=== PATIENT | male | born 1970 | race American Indian/Alaskan Native ===

== ENCOUNTER 2019-12-07 17:12 | Inpatient (IN) | payer OTHER ==
--- NOTE | 2019-12-07 17:53 | Cat Scan Report ---
NONENHANCED CT SCAN OF THE BRAIN: INDICATION: neuro deficits <6hrs or sx present upon awakening. TECHNIQUE: Routine CT head without contrast. Sagittal and coronal reformatted images were obtained. A ll CT scans at this location are performed using CT dose reduction for ALARA by means of automated ex posure control. COMPARISON: None. FINDINGS: BRAIN / INTRACRANIAL CONTENTS: Hemorrhage:No intracranial hemorrhage; no subarachnoid hemorrhage Stroke mimics: No subdural or epidural hematoma or space taking lesion Acute/subacute territorial infarction: Calles-white matter interface: No blurring; normal Insular cortex: Normal Basal ganglia: Normal Wedge shaped parenchymal low density area: Not present Cortical sulci: Not effaced Lacunar infarctions: Lacunae seen in both basal ganglia but these appear to be chronic (attenuation s imilar to that of CSF) Vasculopathy: Dense middle cerebral artery sign: Not present Internal carotid artery terminus: Normal Basilar artery:Normal Middle cerebral artery branches in the sylvian fissure (Dot sign): Normal Calcified embolus: Not present ASPECT score: 10 Chronic lesions: Encephalomalacia is seen in the right superior frontal gyrus. Small chronic lacunae are seen in the basal ganglia bilaterally. Craniocervical junction:No significant abnormality Orbits:No significant abnormality Paranasal sinuses/mastoids:No significant abnormality Additional findings: None IMPRESSION: No intracerebral hemorrhage No stroke mimics No acute/subacute infarction: Given the history of right arm and leg weakness, left precentral gyrus and left corticospinal tract appear normal. This exam was performed as part of a code stroke protocol. The exam was completed at [facility] on 12/07/2019 4:39 PM. The exam was reviewed at 4:43 PM Central daylight saving time and ER physician was notified at 4:47 PM. Signer Name: Nubia Augustine MD Signed: 12/07/2019 5:48 PM Workstation Name: [id number]
[2019-12-07 18:02] LABS: Basophils % (Auto) 0.8 % (0.0-1.8); Eosinophils % (Auto) 1.1 % (0.0-4.3); Hematocrit 39.6 % (35.5-45.6); Hemoglobin 13.4 gm/dl (11.8-15.2); Lymphocytes # (Auto) 1.6 K/mm3 (1.2-5.4); Lymphocytes % (Auto) 38.8 % (13.4-35.0); Mean Corpuscular HGB Conc 34 % (32-34); Mean Corpuscular Volume 91 fl (84-94); Monocytes # (Auto) 0.4 K/mm3 (0.0-0.8); Platelet Count 151 K/mm3 (140-440); Red Blood Count 4.34 M/mm3 (3.65-5.03)
--- NOTE | 2019-12-07 18:11 | Consultation ---
History of Present Illness Consult date: 12/07/19 Medications and Allergies Allergies Allergy/AdvReac Type Severity Reaction Status Date / Time No Known Allergies Allergy Unverified 12/07/19 17:22 Physical Examination - Vital Signs Vital Signs: Vital Signs Temp Pulse Resp BP Pulse Ox 98.4 F 97 H 18 204/117 99 12/07/19 17:22 12/07/19 17:22 12/07/19 17:22 12/07/19 17:22 12/07/19 17:22 Results - Laboratory Findings CBC and BMP: 12/07/19 17:50 Abnormal Lab Findings: Abnormal Labs 12/07/19 12/07/19 17:36 17:50 WBC 4.2 L RDW 13.0 L Lymph % (Auto) 38.8 H [place] % (Auto) 9.0 H POC Glucose 115 H Assessment and Plan [facility] TeleNeurology Consult Services Date of Service: 12/07/2019 17:26:35 Impression: stroke Comments/Sign-Out: 49 year old male patient right limb numbness since last evening. NIHSS 0. BPs were 200+/100 No indication for IVtPA, Ok for routine stroke admission, no indication for IVtPA or stat interventional assessment. BPs less than 180/90 gentle IV hydration NS IVF 60mls/h Asa, statin Metrics: Last Known Well: Unknown [employer] Notification Time: 12/07/2019 17:26:35 Arrival Time: 12/07/2019 17:26:00 Stamp Time: 12/07/2019 17:26:35 Time First Login Attempt: 12/07/2019 17:27:39 Video Start Time: 12/07/2019 17:27:39 Symptoms: right leg numbness progressing to arm since last evening NIHSS Start Assessment Time: 12/07/2019 17:36:58 Patient is not a candidate for tPA. Video End Time: 12/07/2019 17:50:17 CT head showed no acute hemorrhage or acute core infarct. Clinical Presentation is not Suggestive of Large Vessel Occlusive Disease Radiologist was not called back for review of advanced imaging because CTa not obtained ED Physician notified of diagnostic impression and management plan on 12/07/2019 18:09:19 Sign Out: Discussed with Emergency Department Provider History of Present Illness: Patient is a 49 year old Male. 49 year old male patient who noted right leg numbness yesterday, at some point progressing to the right arm . Symptoms were still present today so he was brought here after going to urgent care. He denies limb weakness, denies vision changes. NIHSS 0 Examination: BP(207/117), 1A: Level of Consciousness - Alert; keenly responsive + 0 1B: Ask Month and Age - Both Questions Right + 0 1C: Blink Eyes & Squeeze Hands - Performs Both Tasks + 0 2: Test Horizontal Extraocular Movements - Normal + 0 3: Test Visual Batres - No Visual Loss + 0 4: Test Facial Palsy (Use Grimace if Obtunded) - Normal symmetry + 0 5A: Test Left Arm Motor Drift - No Drift for 10 Seconds + 0 5B: Test Right Arm Motor Drift - No Drift for 10 Seconds + 0 6A: Test Left Leg Motor Drift - No Drift for 5 Seconds + 0 6B: Test Right Leg Motor Drift - No Drift for 5 Seconds + 0 7: Test Limb Ataxia (FNF/Heel-Gracia) - No Ataxia + 0 8: Test Sensation - Normal; No sensory loss + 0 9: Test Language/Aphasia - Normal; No aphasia + 0 10: Test Dysarthria - Normal + 0 11: Test Extinction/Inattention - No abnormality + 0 NIHSS Score: 0 Patient/Family was informed the Neurology Consult would happen via TeleHealth consult by way of interactive audio and video telecommunications and consented to receiving care in this manner. Due to the immediate potential for life-threatening deterioration due to underlying acute neurologic illness, I spent 35 minutes providing critical care. This time includes time for face to face visit via telemedicine, review of medical records, imaging studies and discussion of findings with providers, the patient and/or family. Dr Magdy Adams [facility] Case [id number]
[2019-12-07 18:13] LABS: INR 1.07 (0.87-1.13); Partial Thromboplastin Time 25.9 Sec. (24.2-36.6)
[2019-12-07 18:14] LABS: Thrombin Time 17.1 Sec. (15.1-19.6)
[2019-12-07 18:16] LABS: BUN/Creatinine Ratio 10; Blood Urea Nitrogen 12 mg/dL (9-20); Calcium 9.2 mg/dL (8.4-10.2); Hemolysis Index 7
--- NOTE | 2019-12-07 18:50 | Emergency Department Report ---
ED Neuro Deficit HPI - General Chief Complaint: Neuro Symptoms/Deficit Stated Complaint: RT SIDE NUMB Time Seen by Provider: 12/07/19 17:39 Source: patient Mode of arrival: Ambulatory Limitations: No Limitations - History of Present Illness Initial Comments: This is a 49-year-old male with history of hypertension who presents with right face right arm right leg numbness since 3:00 this morning. Numbness began in the right foot then progressed to the right leg right arm and face throughout the day. Numbness is still present. He currently denies headache. He denies weakness. He denies blurry vision. -: Sudden, This morning Location: right face, right arm, right leg History of same: No Place: home Severity: mild Improves With: none Worsens With: none On Anticoagulants: No Context: sudden onset Associated Symptoms: denies other symptoms - Related Data Allergies/Adverse Reactions: Allergies Allergy/AdvReac Type Severity Reaction Status Date / Time No Known Allergies Allergy Unverified 12/07/19 17:22 ED Review of Systems ROS: Stated complaint: RT SIDE NUMB Other details as noted in HPI Comment: All other systems reviewed and negative Constitutional: denies: fever, malaise Respiratory: denies: cough, shortness of breath Cardiovascular: denies: chest pain Gastrointestinal: denies: nausea, vomiting Neurological: numbness. denies: headache, paresthesias, confusion, abnormal gait, vertigo ED Past Medical Hx - Past Medical History Previous Medical History?: Yes Hx Hypertension: Yes - Surgical History Past Surgical History?: No - Family History Family history: hypertension - Social History Smoking Status: Never Smoker Substance Use Type: Alcohol ED Neuro Physical Exam - General Limitations: No Limitations General appearance: alert, in no apparent distress Suspected Stroke: Yes - Head Head exam: Present: atraumatic, normocephalic - Eye Eye exam: Present: normal appearance - ENT ENT exam: Present: mucous membranes moist - Neck Neck exam: Present: normal inspection, full ROM - Respiratory Respiratory exam: Present: normal lung sounds bilaterally. Absent: respiratory distress, wheezes, rales, rhonchi - Cardiovascular Cardiovascular Exam: Present: regular rate, normal rhythm, normal heart sounds. Absent: systolic murmur, diastolic murmur, rubs, gallop - GI/Abdominal GI/Abdominal exam: Present: soft, normal bowel sounds. Absent: distended, tenderness, guarding, rebound - Rectal Rectal exam: Present: deferred - Extremities Exam Extremities exam: Present: normal inspection - Back Exam Back exam: Present: normal inspection - Neurological Exam Neurological exam: Present: alert, oriented X3 - NIHSS Assessment Interval: Baseline 1a. Level of Consciousness: alert/keenly responsive 1b. LOC Questions: answers both correctly 1c. LOC Commands: performs tasks correctly 2. Best Gaze: normal 3. Visual: no visual loss 4. Facial Palsy: normal symmetrical movement 5b. Motor Arm Right: no drift 5a. Motor Arm Left: no drift 6a. Motor Leg Left: no drift 6b. Motor Leg Right: no drift 7. Limb Ataxia: absent 8. Sensory: mild/moderate sensory loss 9. Best Language: no aphasia 10. Dysarthria: normal 11. Extinction/Inattention: no abnormality Total Score: 1 Stroke Severity: Minor Stroke - Psychiatric Psychiatric exam: Present: normal affect, normal mood - Skin Skin exam: Present: warm, dry, intact, normal color. Absent: rash ED Course Vital Signs 12/07/19 17:22 Temperature 98.4 F Pulse Rate 97 H Respiratory 18 Rate Blood Pressure 204/117 [Right] O2 Sat by Pulse 99 Oximetry - Lab Data Result diagrams: 12/07/19 17:50 12/07/19 17:50 Lab Results 12/07/19 12/07/19 12/07/19 Range/Units 17:36 17:50 17:50 WBC 4.2 L (4.5-11.0) K/mm3 RBC 4.34 (3.65-5.03) M/mm3 Hgb 13.4 (11.8-15.2) gm/dl Hct 39.6 (35.5-45.6) % MCV 91 (84-94) fl MCH 31 (28-32) pg MCHC 34 (32-34) % RDW 13.0 L (13.2-15.2) % Plt Count 151 (140-440) K/mm3 Lymph % (Auto) 38.8 H (13.4-35.0) % [place] % (Auto) 9.0 H (0.0-7.3) % Eos % (Auto) 1.1 (0.0-4.3) % Baso % (Auto) 0.8 (0.0-1.8) % Lymph # 1.6 (1.2-5.4) K/mm3 [place] # 0.4 (0.0-0.8) K/mm3 Eos # 0.0 (0.0-0.4) K/mm3 Baso # 0.0 (0.0-0.1) K/mm3 Seg Neutrophils % 50.3 (40.0-70.0) % Seg Neutrophils # 2.1 (1.8-7.7) K/mm3 PT 14.0 (12.2-14.9) Sec. INR 1.07 (0.87-1.13) APTT 25.9 (24.2-36.6) Sec. Thrombin Time 17.1 (15.1-19.6) Sec. Sodium (137-145) mmol/L Potassium (3.6-5.0) mmol/L Chloride (98-107) mmol/L Carbon Dioxide (22-30) mmol/L Anion Gap mmol/L BUN (9-20) mg/dL Creatinine (0.8-1.3) mg/dL Estimated GFR ml/min BUN/Creatinine Ratio % Glucose (75-100) mg/dL POC Glucose 115 H (70-105) Calcium (8.4-10.2) mg/dL Troponin T (0.00-0.029) ng/mL 12/07/19 12/07/19 Range/Units 17:50 18:39 WBC (4.5-11.0) K/mm3 RBC (3.65-5.03) M/mm3 Hgb (11.8-15.2) gm/dl Hct (35.5-45.6) % MCV (84-94) fl MCH (28-32) pg MCHC (32-34) % RDW (13.2-15.2) % Plt Count (140-440) K/mm3 Lymph % (Auto) (13.4-35.0) % [place] % (Auto) (0.0-7.3) % Eos % (Auto) (0.0-4.3) % Baso % (Auto) (0.0-1.8) % Lymph # (1.2-5.4) K/mm3 [place] # (0.0-0.8) K/mm3 Eos # (0.0-0.4) K/mm3 Baso # (0.0-0.1) K/mm3 Seg Neutrophils % (40.0-70.0) % Seg Neutrophils # (1.8-7.7) K/mm3 PT (12.2-14.9) Sec. INR (0.87-1.13) APTT (24.2-36.6) Sec. Thrombin Time (15.1-19.6) Sec. Sodium 143 (137-145) mmol/L Potassium 3.7 (3.6-5.0) mmol/L Chloride 105.8 (98-107) mmol/L Carbon Dioxide 26 (22-30) mmol/L Anion Gap 15 mmol/L BUN 12 (9-20) mg/dL Creatinine 1.2 (0.8-1.3) mg/dL Estimated GFR > 60 ml/min BUN/Creatinine Ratio 10 % Glucose 139 H (75-100) mg/dL POC Glucose 122 H (70-105) Calcium 9.2 (8.4-10.2) mg/dL Troponin T < 0.010 (0.00-0.029) ng/mL 12/07/19 19:00 EKG obtained 1852 Normal sinus rhythm rate 80 bpm normal axis normal intervals no ST elevation positive LVH nonischemic T wave pattern - Radiology Data Radiology results: report reviewed NONENHANCED CT SCAN OF THE BRAIN: INDICATION: neuro deficits <6hrs or sx present upon awakening. TECHNIQUE: Routine CT head without contrast. Sagittal and coronal reformatted images were obtained. All CT scans at this location are performed using CT dose reduction for ALARA by means of automated exposure control. COMPARISON: None. FINDINGS: BRAIN / INTRACRANIAL CONTENTS: Hemorrhage:No intracranial hemorrhage; no subarachnoid hemorrhage Stroke mimics: No subdural or epidural hematoma or space taking lesion Acute/subacute territorial infarction: Calles-white matter interface: No blurring; normal Insular cortex: Normal Basal ganglia: Normal Wedge shaped parenchymal low density area: Not present Cortical sulci: Not effaced Lacunar infarctions: Lacunae seen in both basal ganglia but these appear to be chronic (attenuation similar to that of CSF) Vasculopathy: Dense middle cerebral artery sign: Not present Internal carotid artery terminus: Normal Basilar artery:Normal Middle cerebral artery branches in the sylvian fissure (Dot sign): Normal Calcified embolus: Not present ASPECT score: 10 Chronic lesions: Encephalomalacia is seen in the right superior frontal gyrus. Small chronic lacunae are seen in the basal ganglia bilaterally. Craniocervical junction:No significant abnormality Orbits:No significant abnormality Paranasal sinuses/mastoids:No significant abnormality Additional findings: None IMPRESSION: No intracerebral hemorrhage No stroke mimics No acute/subacute infarction: Given the history of right arm and leg weakness, left precentral gyrus and left corticospinal tract appear normal. - Medical Decision Making Acute CVA: Patient has persistent right-sided numbness to both soft touch and pinprick. NIH stroke score 1. Due to mild symptoms, thrombolytics not indicated. Also due to time of onset, thrombolytics are not indicated. Patient given aspirin in the emergency department. Tele-neurologist recommended admission for stroke evaluation. I have addressed elevated blood pressure with IV labetalol. \Patient is admitted to the hospital service Work-up notable for encephalomalacia right superior frontal gyrus, lacunar infarcts chronic in both basal ganglia - Thrombolytic Inclusion/Exclusion Thrombolytic Exclusion Criteria: Symptom Onset > 3 Hours Thrombolytic Contraindications: Rapidily Improving s/s Critical Care Time: Yes Critical care time in (mins) excluding proc time.: 40 Critical care attestation.: If time is entered above; I have spent that time in minutes in the direct care of this critically ill patient, excluding procedure time. 40 minutes of critical care time excluding procedures were used in the care of the patient. I reviewed electronic record. I discussed treatment plan with the nursing team members at the bedside. I came immediately to the bedside upon patient's return to the treatment room.. I Patient required multiple interventions and reassessments. I spoke with multiple consultants including tele-neurologist, radiologist and hospitalist regarding patient's care. Upon patient's arrival, code stroke initiated. ED Disposition Clinical Impression: Acute CVA (cerebrovascular accident), Hypertensive urgency Disposition: DC-09 OP ADMIT IP TO THIS HOSP Is pt being admited?: Yes Does the pt Need Aspirin: No Condition: Stable Referrals: PRIMARY CARE, [Primary Care Provider] - 3-5 Days
[2019-12-07] MEDS ORDERED: ASPIRIN 81 MG TAB CHEW PO ONE (18:52)
[2019-12-08] MEDS ORDERED: oxyCODONE /ACETAMINOPHEN 5-325MG TAB PO PRN (00:15)
[2019-12-08] MEDS ORDERED: ACETAMINOPHEN 325 MG TAB PO PRN (00:15)
[2019-12-08] MEDS ORDERED: HYDROmorphone 1 MG/1 ML INJ IV PRN (00:15)
[2019-12-08] MEDS ORDERED: ONDANSETRON 4 MG/2 ML INJ IV PRN (00:15)
--- NOTE | 2019-12-08 00:19 | History and Physical Report ---
History of Present Illness Date of examination: 12/07/19 Date of admission: 12/07/19 19:47 Chief complaint: Right-sided numbness since a.m. History of present illness: 49-year-old male with history of hypertension comes in for right-sided numbness since 3 AM this morning. No seizures. Right right-sided numbness extended from the foot to the left and right lower extremity and then to left side of the body and face. Patient has problems when he tries to close his mouth - Past Medical History Previous Medical History?: Yes Hx Hypertension: Yes - Surgical History Past Surgical History?: No - Family History Family history: hypertension - Social History Smoking Status: Never Smoker Substance Use Type: Alcohol Review of systems Constitutional no weight loss or weight gain no fever or chills HEENT no sore throat no post nasal drip no diplopia Neck no neck stiffness no lymph gland enlargement Chest and lungs no shortness of breath cough or wheezing CVS no chest pain no diaphoresis no palpitations GI no nausea no vomiting no diarrhea Genitourinary system no dysuria no flank pain Musculoskeletal system no muscle pains no joint pains [employer] right-sided numbness from the face to the right side of the chest to the right legs right lower extremity. Skin no rash no itching Psychiatric no depression no homicidal or suicidal tendencies Hematologic no lymphedema or bruising Endocrine no polydipsia no polyuria no cold intolerance no heat intolerance Medications and Allergies Allergies Allergy/AdvReac Type Severity Reaction Status Date / Time No Known Allergies Allergy Verified 12/08/19 00:20 Home Medications Medication Instructions Recorded Confirmed Last Taken Type No Known Home Medications [No 12/07/19 12/07/19 Unknown History Reported Home Medications] Exam - Constitutional Vitals: Temp Pulse Resp BP Pulse Ox 98.4 F 65 12 168/107 98 12/07/19 17:22 12/07/19 23:00 12/07/19 23:00 12/07/19 23:00 12/07/19 23:00 General appearance: Present: no acute distress, well-nourished - EENT Eyes: Present: PERRL ENT: hearing intact, clear oral mucosa - Neck Neck: Present: supple, normal ROM - Respiratory Respiratory effort: normal Respiratory: bilateral: CTA - Cardiovascular Heart rate: 78 Rhythm: regular Heart Sounds: Present: S1 & S2. Absent: rub, click - Extremities Extremities: no ischemia, pulses intact, pulses symmetrical, No edema Peripheral Pulses: within normal limits - Abdominal General gastrointestinal: Present: soft, non-tender, non-distended, normal bowel sounds Male genitourinary: Present: normal - Integumentary Integumentary: Present: clear, warm, dry - Musculoskeletal Musculoskeletal: gait normal, strength equal bilaterally - Psychiatric Psychiatric: appropriate mood/affect, intact judgment & insight - Neurologic Neurologic: CNII-XII intact, moves all extremities - Allied Health Allied health notes reviewed: nursing, case management HEART Score - HEART Score Troponin: Troponin T < 0.010 ng/mL (0.00-0.029) 12/07/19 17:50 Results - Labs CBC & Chem 7: 12/09/19 04:47 12/09/19 04:47 Labs: Laboratory Last Values WBC 4.2 K/mm3 (4.5-11.0) L 12/07/19 17:50 RBC 4.34 M/mm3 (3.65-5.03) 12/07/19 17:50 Hgb 13.4 gm/dl (11.8-15.2) 12/07/19 17:50 Hct 39.6 % (35.5-45.6) 12/07/19 17:50 MCV 91 fl (84-94) 12/07/19 17:50 MCH 31 pg (28-32) 12/07/19 17:50 MCHC 34 % (32-34) 12/07/19 17:50 RDW 13.0 % (13.2-15.2) L 12/07/19 17:50 Plt Count 151 K/mm3 (140-440) 12/07/19 17:50 Lymph % (Auto) 38.8 % (13.4-35.0) H 12/07/19 17:50 [place] % (Auto) 9.0 % (0.0-7.3) H 12/07/19 17:50 Eos % (Auto) 1.1 % (0.0-4.3) 12/07/19 17:50 Baso % (Auto) 0.8 % (0.0-1.8) 12/07/19 17:50 Lymph # 1.6 K/mm3 (1.2-5.4) 12/07/19 17:50 [place] # 0.4 K/mm3 (0.0-0.8) 12/07/19 17:50 Eos # 0.0 K/mm3 (0.0-0.4) 12/07/19 17:50 Baso # 0.0 K/mm3 (0.0-0.1) 12/07/19 17:50 Seg Neutrophils % 50.3 % (40.0-70.0) 12/07/19 17:50 Seg Neutrophils # 2.1 K/mm3 (1.8-7.7) 12/07/19 17:50 PT 14.0 Sec. (12.2-14.9) 12/07/19 17:50 INR 1.07 (0.87-1.13) 12/07/19 17:50 APTT 25.9 Sec. (24.2-36.6) 12/07/19 17:50 Thrombin Time 17.1 Sec. (15.1-19.6) 12/07/19 17:50 Sodium 143 mmol/L (137-145) 12/07/19 17:50 Potassium 3.7 mmol/L (3.6-5.0) 12/07/19 17:50 Chloride 105.8 mmol/L (98-107) 12/07/19 17:50 Carbon Dioxide 26 mmol/L (22-30) 12/07/19 17:50 Anion Gap 15 mmol/L 12/07/19 17:50 BUN 12 mg/dL (9-20) 12/07/19 17:50 Creatinine 1.2 mg/dL (0.8-1.3) 12/07/19 17:50 Estimated GFR > 60 ml/min 12/07/19 17:50 BUN/Creatinine Ratio 10 % 12/07/19 17:50 Glucose 139 mg/dL (75-100) H 12/07/19 17:50 POC Glucose 122 (70-105) H 12/07/19 18:39 Calcium 9.2 mg/dL (8.4-10.2) 12/07/19 17:50 Troponin T < 0.010 ng/mL (0.00-0.029) 12/07/19 17:50 Short CBC 12/09/19 Range/Units 04:47 WBC 3.7 L (4.5-11.0) K/mm3 Hgb 14.2 (11.8-15.2) gm/dl Hct 42.1 (35.5-45.6) % Plt Count 159 (140-440) K/mm3 BMP 12/09/19 04:47 Sodium 138 Potassium 3.5 L Chloride 101.7 Carbon Dioxide 27 BUN 15 Creatinine 1.1 Glucose 105 H Calcium 9.2 Liver Function 12/09/19 Range/Units 04:47 Total Bilirubin 0.50 (0.1-1.2) mg/dL AST 19 (5-40) units/L ALT 23 (7-56) units/L Alkaline Phosphatase 46 (35-129) units/L Albumin 4.0 (3.9-5) g/dL - Imaging and Cardiology EKG: report reviewed Chest x-ray: report reviewed (If people like you do not go for putting the end of) Imaging and Cardiology: MRI w IMPRESSION: 1. There is a 1 cm acute infarct oriented along the posterior limb of the left internal capsule as detailed above. 2. There is otherwise moderate microvascular angiopathy with old lacunar infarcts as described [place]/IV: Voiding Method Urinal IV Catheter Type [Right INT / Saline Lock Antecubital] Assessment and Plan Advance Directives: Yes - Patient Problems (1) Acute CVA (cerebrovascular accident) Current Visit: Yes Status: Acute Plan to address problem: Acute infarct continue left internal capsule area affecting the sensory region patient has sensory stroke Aspirin and Plavix (2) Hypertensive urgency Current Visit: Yes Status: Acute Plan to address problem: Patient initiated on antihypertensives and IV hydralazine PRN (3) DVT prophylaxis Current Visit: Yes Status: Acute Plan to address problem: On Lovenox and GI prophylaxis
[2019-12-08] MEDS ORDERED: hydrALAZINE 20 MG/1 ML INJ IV ONE (00:37)
[2019-12-08] MEDS: ASPIRIN 325 MG TAB PO SCH (11:00)
[2019-12-08] MEDS: FAMOTIDINE 20 MG TAB PO SCH ×2 (11:00→21:26)
--- NOTE | 2019-12-08 11:08 | Magnetic Resonance Report ---
MR brain wo con INDICATION / CLINICAL INFORMATION: 49 years Male; MAIN. TECHNIQUE: Multiplanar, multisequence MR images of the brain were obtained. COMPARISON: The study is compared to the previous CT of 12/07/2019. FINDINGS: BRAIN / INTRACRANIAL CONTENTS: There is an acute infarct oriented along the fissure limb of the left internal capsule measuring 1.0 cm longitudinally. On the FLAIR sequence, there are otherwise scattere d hyperintense foci involving cerebral white matter most consistent with microvascular angiopathy. Th ere are old small lacunar infarcts involving the basal ganglia bilaterally. Chronic ischemic changes also extend to the frontal cortical region. The diffusion imaging reveals no further evidence of acut e infarction. On the susceptibility weighted imaging, there are a few foci of marked decreased signal intensity inc luding the basal ganglia most consistent with chronic microhemorrhages. There is mild cerebral atroph y. The ventricular system is correspondingly appropriate in size and configuration. No extra-axial fl uid collections or significant mass effect is identified. The above microvascular angiopathic changes would be advanced for the patient's age. CRANIOCERVICAL JUNCTION: No significant abnormality. VASCULAR FLOW-VOIDS: The distal internal carotid arteries and vertebrobasilar system also demonstrate appropriate signal voids. ORBITS: No significant abnormality of visualized orbits. SINUSES / MASTOIDS: There are mild focal inflammatory changes along the posterior left maxillary sinu s. ADDITIONAL FINDINGS: None. IMPRESSION: 1. There is a 1 cm acute infarct oriented along the posterior limb of the left internal capsule as de tailed above. 2. 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 Signer Name: Logan Starr MD Signed: 12/08/2019 11:04 AM Workstation Name: [id number]
[2019-12-08] MEDS: hydrALAZINE 20 MG/1 ML INJ IV PRN (12:21)
--- NOTE | 2019-12-08 22:55 | Progress Note ---
Assessment and Plan - Patient Problems (1) Acute CVA (cerebrovascular accident) Current Visit: Yes Status: Acute (2) Hypertensive urgency Current Visit: Yes Status: Acute Subjective Date of service: 12/08/19 Objective - Constitutional Vitals: Vital Signs - 12hr 12/08/19 12/08/19 12/08/19 12:14 17:07 20:44 Temperature 98.4 F 98.3 F 98.4 F Pulse Rate 79 97 H 81 Respiratory 18 18 18 Rate Blood Pressure 174/113 166/87 147/97 O2 Sat by Pulse 97 99 100 Oximetry General appearance: Present: no acute distress, well-nourished - EENT Eyes: PERRL, EOM intact ENT: hearing intact, clear oral mucosa Ears: bilateral: normal - Neck Neck: supple, normal ROM - Respiratory Respiratory effort: normal Respiratory: bilateral: CTA - Breasts Breasts: normal - Cardiovascular Rhythm: regular Heart Sounds: Present: S1 & S2. Absent: gallop, rub Extremities: pulses intact, No edema, normal color, Full ROM - Gastrointestinal General gastrointestinal: Present: soft, non-tender, non-distended, normal bowel sounds - Genitourinary Male genitourinary: normal - Integumentary Integumentary: clear, warm, dry - Musculoskeletal Musculoskeletal: 1, strength equal bilaterally - Neurologic Neurologic: moves all extremities - Psychiatric Psychiatric: memory intact, appropriate mood/affect, intact judgment & insight - Labs CBC & Chem 7: 12/07/19 17:50 12/07/19 17:50 Labs: IMPRESSION: 1. There is a 1 cm acute infarct oriented along the posterior limb of the left internal capsule as detailed above. 2. 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 HEART Score - HEART Score Troponin: Troponin T < 0.010 ng/mL (0.00-0.029) 12/07/19 17:50
[2019-12-09 05:26] LABS: Basophils % (Auto) 0.6 % (0.0-1.8); Eosinophils # (Auto) 0.1 K/mm3 (0.0-0.4); Eosinophils % (Auto) 2.6 % (0.0-4.3); Hematocrit 42.1 % (35.5-45.6); Hemoglobin 14.2 gm/dl (11.8-15.2); Lymphocytes # (Auto) 1.7 K/mm3 (1.2-5.4); Lymphocytes % (Auto) 45.8 % (13.4-35.0); Mean Corpuscular HGB Conc 34 % (32-34); Mean Corpuscular Volume 92 fl (84-94); Monocytes # (Auto) 0.4 K/mm3 (0.0-0.8); Monocytes % (Auto) 10.7 % (0.0-7.3); Platelet Count 159 K/mm3 (140-440); Red Blood Count 4.59 M/mm3 (3.65-5.03); Red Cell Distribution Width 13.1 % (13.2-15.2)
[2019-12-09 05:34] LABS: Alanine Aminotransferase 23 units/L (7-56); BUN/Creatinine Ratio 14; Blood Urea Nitrogen 15 mg/dL (9-20); Calcium 9.2 mg/dL (8.4-10.2); Chol/HDL Ratio 3.07 %; HDL Cholesterol 65 mg/dL (40-59); Hemolysis Index 18; LDL Cholesterol,Direct 124 mg/dL (50-130)
[2019-12-09] MEDS: FAMOTIDINE 20 MG TAB PO SCH ×2 (10:36→21:12)
[2019-12-09] MEDS: ASPIRIN 325 MG TAB PO SCH (10:36)
--- NOTE | 2019-12-09 19:59 | Progress Note ---
Assessment and Plan - Patient Problems (1) Acute CVA (cerebrovascular accident) Current Visit: Yes Status: Acute Plan to address problem: Acute infarct continue left internal capsule area affecting the sensory region patient has sensory stroke Aspirin and Plavix (2) Hypertensive urgency Current Visit: Yes Status: Acute Plan to address problem: Patient initiated on antihypertensives and IV hydralazine PRN (3) DVT prophylaxis Current Visit: Yes Status: Acute Plan to address problem: On Lovenox and GI prophylaxis Subjective Date of service: 12/08/19 Principal diagnosis: Acute CVA Interval history: Patient has right-sided numbness from face to the toes which is improving patient's clinical picture consistent with acute sensory stroke involving the possibly thalamus and internal capsule Objective - Constitutional General appearance: Present: no acute distress, well-nourished - EENT Eyes: PERRL, EOM intact ENT: hearing intact, clear oral mucosa Ears: bilateral: normal - Neck Neck: supple, normal ROM - Respiratory Respiratory effort: normal Respiratory: bilateral: CTA - Breasts Breasts: normal - Cardiovascular Heart rate: 78 Rhythm: regular Heart Sounds: Present: S1 & S2. Absent: gallop, rub Extremities: no ischemia, pulses intact, No edema, normal color, Full ROM - Gastrointestinal General gastrointestinal: Present: soft, non-tender, non-distended, normal bowel sounds - Genitourinary Male genitourinary: deferred, normal - Integumentary Integumentary: clear, warm, dry - Musculoskeletal Musculoskeletal: 1, strength equal bilaterally - Neurologic Neurologic: moves all extremities - Psychiatric Psychiatric: memory intact, appropriate mood/affect, intact judgment & insight - Labs CBC & Chem 7: 12/09/19 04:47 12/09/19 04:47 Labs: Abnormal lab results 12/09/19 12/09/19 Range/Units 04:47 04:47 WBC 3.7 L (4.5-11.0) K/mm3 RDW 13.1 L (13.2-15.2) % Lymph % (Auto) 45.8 H (13.4-35.0) % [place] % (Auto) 10.7 H (0.0-7.3) % Seg Neutrophils # 1.5 L (1.8-7.7) K/mm3 Potassium 3.5 L (3.6-5.0) mmol/L Glucose 105 H (75-100) mg/dL Cholesterol 200 H (50-199) mg/dL HDL Cholesterol 65 H (40-59) mg/dL HEART Score - HEART Score Troponin: Troponin T < 0.010 ng/mL (0.00-0.029) 12/07/19 17:50
--- NOTE | 2019-12-09 20:02 | Discharge Summary ---
Providers - Providers Date of Admission: 12/08/19 11:00 Date of discharge: 12/09/19 Attending physician: SONIDO ESPINAL 12/08/19 00:14 Occupational Therapy Evaluate and Treat [CONS] Routine Comment: Reason For Exam: Neuro deficits Physical Therapy Evaluation and Treat [CONS] Routine Comment: Reason For Exam: Neuro deficits Primary care physician: RN LPN CNA Hospitalization Condition: Stable Pertinent studies: Patient had MRI and echocardiogram and carotid duplex scan Hospital course: Subjective Date of service: 12/09/19 Principal diagnosis: Acute CVA Interval history: Patient has right-sided numbness from face to the toes which is improving patient's clinical picture consistent with acute sensory stroke involving the possibly thalamus and internal capsule (1) Acute CVA (cerebrovascular accident) Current Visit: Yes Status: Acute Plan to address problem: Acute infarct continue left internal capsule area affecting the sensory region patient has sensory stroke Aspirin and Plavix (2) Hypertensive urgency Current Visit: Yes Status: Acute Plan to address problem: Patient initiated on antihypertensives and IV hydralazine PRN (3) DVT prophylaxis Current Visit: Yes Status: Acute Plan to address problem: On Lovenox and GI prophylaxis 4)Dyslipidemia on statins Disposition: DC-01 TO HOME OR SELFCARE - Discharge Diagnoses (1) Acute CVA (cerebrovascular accident) Status: Acute (2) Hypertensive urgency Status: Acute (3) DVT prophylaxis Status: Acute Core Measure Documentation - Palliative Care Palliative Care/ Comfort Measures: Not Applicable - Core Measures Any of the following diagnoses?: none Exam - Constitutional Vitals: Temp Pulse Resp BP Pulse Ox 98.0 F 71 20 148/88 98 12/09/19 05:22 12/09/19 05:22 12/09/19 05:22 12/09/19 05:22 12/09/19 05:22 General appearance: Present: no acute distress, well-nourished - EENT Eyes: Present: PERRL ENT: hearing intact, clear oral mucosa - Neck Neck: Present: supple, normal ROM - Respiratory Respiratory effort: normal Respiratory: bilateral: CTA - Cardiovascular Heart rate: 78 Rhythm: regular Heart Sounds: Present: S1 & S2. Absent: rub, click - Extremities Extremities: pulses symmetrical, No edema Peripheral Pulses: within normal limits - Abdominal General gastrointestinal: Present: soft, non-tender, non-distended, normal bowel sounds Male genitourinary: Present: normal - Integumentary Integumentary: Present: clear, warm, dry - Musculoskeletal Musculoskeletal: gait normal, strength equal bilaterally - Psychiatric Psychiatric: appropriate mood/affect, intact judgment & insight - Neurologic Neurologic: CNII-XII intact, moves all extremities Plan Diet: low fat, low cholesterol, low salt Follow up with: PRIMARY CAREMD [Primary Care Provider] - 3-5 Days PARUL MCINTOSH MD [Staff Physician] - 7 Days
[2019-12-09] MEDS: hydrALAZINE 20 MG/1 ML INJ IV PRN (20:31)
[2019-12-09] MEDS ORDERED: LOSARTAN 50 MG TAB PO SCH (21:00)
[2019-12-09] MEDS ORDERED: cloNIDine 0.2 MG TAB PO PRN (21:59)
[2019-12-09] MEDS ORDERED: cloNIDine 0.2 MG TAB PO ONE (22:18)
[2019-12-09 22:38] VITALS: BP 147/95
== END 2019-12-09 22:40 | disposition home or self-care (01) | DRG 66 ==
LOC: ED 17:12 → 4A 19:47 → OBSVTOIN 12-08 11:00
PROVIDERS: ADMIT Internal Medicine; ATTEND Internal Medicine
DX: I63.9 Cerebral infarction, unspecified (principal); I16.0 Hypertensive urgency; I10 Essential (primary) hypertension; R29.701 NIHSS score 1; R20.0 Anesthesia of skin; E78.5 Hyperlipidemia, unspecified; Z82.49 Family history of ischemic heart disease and other diseases of the circulatory system
CPT/HCPCS: 36415; 70450; 70551; 80048; 80053; 80061; 82962; 83036; 84484; 85025; 85610; 85670; 85730; 93005; 93306; G0378; A9270-GY; J0360